=== PATIENT | female | born 1950 | race Caucasian/White ===

== ENCOUNTER → 2017-06-30 | Outpatient (CLI) | payer MEDICARE, OTHER ==
[2017-01-27 13:21] VITALS: BMI 26.6
[~2017-06-30] MED LIST: ASPI-1471 PO; ASPI-715 PO; ATOR10TA65 PO; ATOR20TA65 PO; BIPAP; BLOO1STR16 MC; CA C1TAB85 PO; CALC-703 PO; CIPR-214 PO; DIA5 PO; DIPH0.5D12 IM; FEN145 PO; FLU150 PO; FLUC100T39 PO; HYDR-385 PO; HYDR12.556 PO; INSU100V26 SC; IPRA3AMP21 IH; LEV500 PO; LISI2.5T60 PO; LISI5TAB25 PO; METF-410 PO; METF-420 PO; MULT-27 PO; MULT-865 PO; MULT1TAB64 PO; NITR-105 PO; NPH,100V12 SQ; NPH,100V2 SUBQ; OXYC-865 PO; OXYGEN INH; OXYGENHOME INH; PAR20 PO; PNEU0.5D3 IM; SIMV-54 PO; SULF-198 PO; [UNRECOGNIZED DRUG - OTHER] PO
[2017-06-30 09:26] LABS: LDL CHOLESTEROL 48 mg/dl
== END ==
LOC: LAB 08:25
PROVIDERS: ATTEND Internal Medicine
DX: E78.2 Mixed hyperlipidemia (principal); I10 Essential (primary) hypertension; E11.9 Type 2 diabetes mellitus without complications
CPT/HCPCS: 36415; 82040; 82247; 82310; 82374; 82435; 82465; 82565; 82947; 83036; 83718; 84075; 84132; 84155; 84295; 84450; 84460; 84478; 84520

== ENCOUNTER → 2017-10-21 | Outpatient (CLI) | payer MEDICARE, OTHER ==
[2017-01-27 13:21] VITALS: BMI 26.6
[~2017-10-21] MED LIST changes: -METF-410 PO; +METF-411 PO; -METF-420 PO; +METF-421 PO
[2017-10-21 09:34] LABS: LDL CHOLESTEROL 79 mg/dl
== END ==
LOC: LAB 09:03
PROVIDERS: ATTEND Internal Medicine
DX: E78.2 Mixed hyperlipidemia (principal); I10 Essential (primary) hypertension; E11.9 Type 2 diabetes mellitus without complications
CPT/HCPCS: 36415; 82040; 82247; 82310; 82374; 82435; 82465; 82565; 82947; 83036; 83718; 84075; 84132; 84155; 84295; 84450; 84460; 84478; 84520

== ENCOUNTER → 2018-03-01 | Outpatient (CLI) | payer MEDICARE, OTHER ==
[2017-01-27 13:21] VITALS: BMI 26.6
[~2018-03-01] MED LIST changes: +IPRA3AMP10 IH; -IPRA3AMP21 IH; -METF-411 PO; -METF-421 PO; +METF-450 PO; +METF-452 PO
[2018-03-01 10:02] VITALS: BP 140/70
== END ==
LOC: SPU 07:16
PROVIDERS: ATTEND Internal Medicine
DX: E78.2 Mixed hyperlipidemia (principal); I10 Essential (primary) hypertension; E11.9 Type 2 diabetes mellitus without complications
CPT/HCPCS: 36415; 82465; 83036; 83718; 84478

== ENCOUNTER → 2018-03-14 | Outpatient (CLI) | payer MEDICARE, OTHER ==
[2017-01-27 13:21] VITALS: BMI 26.6
== END ==
LOC: LAB 13:43
PROVIDERS: ATTEND Internal Medicine
DX: E78.2 Mixed hyperlipidemia (principal); E11.9 Type 2 diabetes mellitus without complications; I10 Essential (primary) hypertension
CPT/HCPCS: 36415; 82040; 82247; 82310; 82374; 82435; 82565; 82947; 84075; 84132; 84155; 84295; 84450; 84460; 84520

== ENCOUNTER → 2018-05-04 | Outpatient (CLI) | payer MEDICARE, OTHER ==
[2017-01-27 13:21] VITALS: BMI 26.6
== END ==
LOC: LAB 15:11
PROVIDERS: ATTEND Internal Medicine
DX: N39.0 Urinary tract infection, site not specified (principal)
CPT/HCPCS: 87077; 87088; 87186

== ENCOUNTER 2018-07-14 02:02 | Day surgery (SDC) | payer MEDICARE, OTHER ==
[2017-01-27 13:21] VITALS: Ht 165.1 cm; Wt 74.8 kg
[~2018-07-14] VITALS: Ht 165.1 cm; Wt 74.8 kg
[~2018-07-14 02:02] MED LIST changes: +ALB18R INH
[2018-07-14 11:39] VITALS: BP 107/63
[2018-07-14] MEDS ORDERED: acetaZOLAMIDE 500 MG CAPCR PO ONE (12:00)
[2018-07-14] MEDS ORDERED: OPHTHALMIC PROCEDURE 2 OD PRN ×2 (12:00)
[2018-07-14] MEDS ORDERED: LIDOCAINE/SOD BICARB 8.4% SYR ID ONE (12:00)
[2018-07-14] MEDS ORDERED: OPHTHALMIC PROCEDURE 1 OD PRN (12:00)
[2018-07-14] MEDS ORDERED: NORMOSOL R SOLN(*) 1000 ML BAG 1,000 ML IV PRN (12:00)
[2018-07-14 13:21] VITALS: BP 129/65
--- NOTE | 2018-07-14 17:23 | FOSTER RIGHT EYE CATARACT ---
EVENT DATE: July 14, 2018 SURGEON: Aldo Velazquez MD ANESTHESIOLOGIST: Chadwick Banks MD ANESTHESIA: MAC PREOPERATIVE DIAGNOSIS Cataract, right eye. POSTOPERATIVE DIAGNOSIS Cataract, right eye. PROCEDURE Phacoemulsification of cataractous lens with implantation of an intraocular lens, right eye. DESCRIPTION OF PROCEDURE The risks, benefits, and alternatives were carefully discussed with the patient, and preoperative consent was obtained. The patient was brought to the operating room after receiving topical anesthetic. The patient was prepped and draped using sterile technique in the usual manner. A stab incision was made, and the chamber was inflated with preservative-free lidocaine. DuoVisc was injected to inflate the chamber. A 2.2 mm blade was used to enter the anterior chamber. Utrata forceps were used to tear a circular capsulorrhexis. BSS was used to hydrodissect the nucleus. Phaco tip was introduced, and the nucleus was chopped into four quadrants. Each quadrant was removed. The I/A tip was used to remove the cortex. The bag was inflated with ProVisc. The intraocular lens was injected into the capsular bag. The I/A tip was used to remove the ProVisc. The wound was found to be watertight. Vigamox, Nevanac, and Maxitrol ointment were placed in the patient's eye. The patient's eye was patched, and the patient was taken to the recovery room in stable condition. The patient was examined in the recovery room and found to be stable prior to release from the hospital. MILLI
== END 2018-07-14 13:40 | disposition home or self-care (01) ==
LOC: OR 02:02
PROVIDERS: ATTEND Ophthalmology
DX: H25.11 Age-related nuclear cataract, right eye (principal)
CPT/HCPCS: 36416; 66984; 82948; A9270; V2632

== ENCOUNTER → 2018-08-15 | Outpatient (CLI) | payer MEDICARE, OTHER ==
[2017-01-27 13:21] VITALS: BMI 26.6
[2018-08-15 09:44] LABS: PLATELET COUNT, AUTOMATED 299 K/uL (150-450)
[2018-08-15 10:24] LABS: LDL CHOLESTEROL 85 mg/dl
== END ==
LOC: LAB 09:04
PROVIDERS: ATTEND Nurse Practitioner Family
DX: E78.00 Pure hypercholesterolemia, unspecified (principal); R73.09 Other abnormal glucose; E55.9 Vitamin D deficiency, unspecified; R53.83 Other fatigue
CPT/HCPCS: 36415; 82040; 82247; 82306; 82310; 82374; 82435; 82465; 82565; 82947; 83036; 83718; 84075; 84132; 84155; 84295; 84443; 84450; 84460; 84478; 84520; 85025

== ENCOUNTER → 2018-09-07 | Outpatient (CLI) | payer MEDICARE, OTHER ==
[2017-01-27 13:21] VITALS: BMI 26.6
[~2018-09-07] MED LIST changes: -DIPH0.5D12 IM; +DIPH0.5S2 IM
--- NOTE | 2018-09-07 15:30 | RADIOLOGY IMAGING REPORT ---
FACILITY: [facility] PATIENT NAME: Paul Bush : 1950 MR: [id number] V: [id number] EXAM DATE: ORDERING PHYSICIAN: PAULO CALDERON TECHNOLOGIST: Location: [facility] Patient: Paul Bush : 1950 Visit/Account:[id number] Date of Sevice: 09/07/2018 DEXA Scan 09/07/2018 2:30 PM HISTORY: Vitamin D deficiency. Postmenopausal. Comparison: 04/15/2016 HIP: Bone mineral density (BMD) measured in the Left total hip region correlates with a Z-score 1.5 and a T-score of 0.5 which is Normal as defined by the World Health Organization. The corresponding risk o f fracture in the hip is Not increased compared with a young adult reference population. This value h as decreased by 9.1 % since the prior study. More than 5% change is considered significant. Bone mineral density (BMD) measured in the Femoral Neck region measures 0.976 g/cm2. T-score is -0.4 , also within normal range. FOREARM: The bone mineral density (BMD) measured in the ULTRADISTAL Right radius, where trabecular bone predom inates, correlates with a Z-score of 1.8 and a T-score of -0.1 which is normal as defined by the Worl d Health Organization. The corresponding risk of fracture in the distal forearm is not increased com pared with a young adult reference population. The bone mineral density (BMD) in the MIDSHAFT of the forearm, where cortical bone predominates, alexandro elates with a T-score of -1.0 which is mildly osteopenic as defined by the World Health Organization. The corresponding risk of fracture in the midshaft of the forearm is increased 2 times compared with a young adult reference population. This value has decreased by 1.2 % since the prior study. More than 5% change is considered significant. IMPRESSION: 1. Right Forearm: Mild osteopenia. There has been no significant interval change in the bone merchandise examiner al density since the previous exam. 2. Left Total Hip: Normal. There has been a significant interval decrease in the bone mineral densi ty since the previous exam. 3. Femoral Neck: Bone Mineral Density is 0.976 g/cm2. Normal The next DEXA scan of this patient should include the following sites: Forearm and hip. FRAX? WHO Fracture Risk Assessment Tool link: <http://www.shef.ac.uk/FRAX/tool.jsp?locationValue=9> PLEASE NOTE: 1) The World Health Organization defines low BMD as follows: T-score Normal > -1 Osteopenia < -1 and > -2.5 Osteoporosis < -2.5 without fractures Established osteoporosis < -2.5 with fractures 2) In general, you may wish to consider: Diagnosis Treatment Follow-up DEXA Normal BMD Prevention 2-3 years Osteopenia Prevention/therapy 1-2 years Osteoporosis Therapy Yearly 3) Fracture risk estimated from the T-score is more accurate for vertebral fractures (often spontane ous) than for hip fractures. Report Dictated By: Mitch Breaux MD at 09/07/2018 3:22 PM Report E-Signed By: Mitch Breaux MD at 09/07/2018 3:26 PM JACOBN:[email or web address]
--- NOTE | 2018-09-08 11:27 | RADIOLOGY IMAGING REPORT ---
FACILITY: [facility] PATIENT NAME: ROSA GOODWIN : [id number] MR: [id number]: [id number] EXAM DATE: ORDERING PHYSICIAN: PAULO CALDERON TECHNOLOGIST: Carmen Bullard PROCEDURE:BILATERAL DIGITAL SCREENING MAMMOGRAM WITH CAD ASSISTED INTERPRETATION & 3D TOMOSYNTHESIS COMPARISON:Prior mammograms dated 04/28/17, 04/26/16, 04/15/16, 05/24/14, 04/27/13 INDICATIONS:screening FINDINGS: There are scattered areas of fibroglandular density throughout the breasts. The parenchymal pattern has remained stable when allowing for difference in mammographic technique & patient positioning. DIAGNOSTIC CATEGORY 1--NEGATIVE. RECOMMENDATIONS: ROUTINE MAMMOGRAM AND CLINICAL EVALUATION. IMPRESSION: BIRADS 1: Negative. No significant abnormality is seen. Dictated by: Georgia Suero M.D. on 09/07/2018 at 16:28 Transcribed by: TIMBO on 09/08/2018 at 9:39 Approved by: Georgia Suero M.D. on 09/08/2018 at 11:25 [facility]
== END ==
LOC: MAMO 00:53
PROVIDERS: ATTEND Nurse Practitioner Family
DX: Z12.31 Encounter for screening mammogram for malignant neoplasm of breast (principal); M85.831 Other specified disorders of bone density and structure, right forearm
CPT/HCPCS: 77063; 77067; 77080

== ENCOUNTER → 2018-11-15 | Outpatient (CLI) | payer MEDICARE, OTHER ==
[2017-01-27 13:21] VITALS: BMI 26.6
[2018-11-15 08:52] LABS: PLATELET COUNT, AUTOMATED 276 K/uL (150-450)
[2018-11-15 09:34] LABS: LDL CHOLESTEROL 86 mg/dl
== END ==
LOC: LAB 08:30
PROVIDERS: ATTEND Nurse Practitioner Family
DX: E55.9 Vitamin D deficiency, unspecified (principal); R73.09 Other abnormal glucose; E78.00 Pure hypercholesterolemia, unspecified; J44.9 Chronic obstructive pulmonary disease, unspecified; G47.30 Sleep apnea, unspecified; I10 Essential (primary) hypertension
CPT/HCPCS: 36415; 82040; 82247; 82306; 82310; 82374; 82435; 82465; 82565; 82947; 83036; 83718; 84075; 84132; 84155; 84295; 84443; 84450; 84460; 84478; 84520; 85025